=== PATIENT | male | born 2005 | race Caucasian/White ===

== ENCOUNTER 2025-02-13 22:54 | Emergency (ER) | payer OTHER ==
[~2025-02-13] VITALS: Ht 177.8 cm; Wt 89.8 kg
[2025-02-14 00:09] VITALS: BP 128/64; TEMP 98.5; O2SAT 98
[2025-02-14 00:48] LABS: APPEARANCE,URINE CLOUDY (CLEAR); BLOOD, URINE 3+ Ery/uL (NEGATIVE); LEUKOCYTE ESTERASE ,URINE NEGATIVE (NEGATIVE); NITRITE, URINE NEGATIVE (NEGATIVE); UGLUCOSE NEGATIVE (NEGATIVE)
[2025-02-14 00:50] LABS: ADD URINE CULTURE NO; SQUAMOUS EPITHELIAL CELL,UR Few /HPF (None Seen)
[2025-02-14] MEDS ORDERED: ONDANSETRON HCL/PF 4 MG/2 ML VIAL ONE ×2 (01:47→02:53)
[2025-02-14] MEDS ORDERED: HYDROMORPHONE 1 MG/1 ML DISP.SYRIN ONE ×2 (01:47→02:53)
[2025-02-14] MEDS: HYDROMORPHONE 1 MG/1 ML DISP.SYRIN IV ONE ×2 (01:54→03:01)
[2025-02-14] MEDS: ONDANSETRON HCL/PF - ER 4 MG/2 ML VIAL IV ONE ×2 (01:55→03:02)
[2025-02-14] MEDS: IV NS 0.9% 1,000 ML IV ONE (01:55)
[2025-02-14 02:12] LABS: PLATELET COUNT (AUTO) 275 K/uL (150-450); RED BLOOD CELL COUNT(AUTO) 5.10 MIL/uL (4.5-6.0); RED CELL DISTRIBUTION WIDTH 12.9 % (11.5-15.0); WHITE BLOOD COUNT (AUTO) 15.8 K/uL (4.3-11.0)
[2025-02-14 02:16] LABS: CALCIUM, SERUM 10.5 mg/dL (8.5-10.1); CREATININE 0.9 mg/dL (0.6-1.3); SODIUM SERUM 140.0 mmol/L (136-145); UREA NITROGEN, BLOOD 12.0 mg/dL (7-18)
[2025-02-14 02:22] LABS: ASPARTATE AMINOTRANSFERASE 114.0 U/L (15-37); TOTAL PROTEIN, SERUM 8.2 g/dL (6.4-8.2)
[2025-02-14 02:34] LABS: LACTIC ACID 1.3 mmol/L (0.4-2.0)
[2025-02-14] MEDS ORDERED: TAMS-12 PO (02:51)
[2025-02-14] MEDS ORDERED: KETO10TA2 PO (02:51)
[2025-02-14] MEDS ORDERED: KETOROLAC TROMETHAMINE INJ 30 MG/ML VIAL ONE (02:53)
[2025-02-14] MEDS: KETOROLAC TROMETHAMINE INJ 30 MG/ML VIAL IV ONE (03:02)
== END 2025-02-14 04:06 | disposition home or self-care (01) ==
LOC: ER 22:58
DX: N13.2 Hydronephrosis with renal and ureteral calculous obstruction (principal); R31.9 Hematuria, unspecified
CPT/HCPCS: 99285; 74176; 96374; 96375; 96361; 96376; 85025; 87040; 83605; 81001; 36415; 80053; 87491; 87591; J1885; J2405 ×4; J1171 ×2